=== PATIENT | male | born 1995 ===

== ENCOUNTER 2018-09-06 20:37 | Emergency (ER) | payer SELFPAY ==
[~2018-09-06] VITALS: Ht 172.7 cm; Wt 65.0 kg
[2018-09-06] MEDS ORDERED: ALBU8HFA PO (21:32)
[2018-09-06 21:41] VITALS: BP 114/66
== END 2018-09-06 21:42 | disposition home or self-care (01) ==
LOC: ER 20:38 → EDBD 20:38 → ER 21:42
DX: J45.909 Unspecified asthma, uncomplicated (principal); Z76.0 Encounter for issue of repeat prescription; Z88.8 Allergy status to other drugs, medicaments and biological substances
CPT/HCPCS: 99283